=== PATIENT | male | born 1975 | race Two or more races ===

== ENCOUNTER 2018-06-13 04:14 | Emergency (ER) | payer SELFPAY ==
[~2018-06-13] VITALS: Ht 182.9 cm; Wt 76.2 kg
[2018-06-13 04:31] VITALS: BP 125/62
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
--- NOTE | 2018-06-13 04:55 | NUR ---
Patient eloped from facility. ER MD notified.
[2018-06-13] MEDS ORDERED: BACI/NEOM/POLY B OINT PKT 1 UDPKT PACKET TP ONE (05:00)
== END 2018-06-13 04:55 | disposition left against medical advice (07) ==
LOC: ER 04:22
DX: S60.812A Abrasion of left wrist, initial encounter (principal); S60.811A Abrasion of right wrist, initial encounter; S50.812A Abrasion of left forearm, initial encounter; S50.811A Abrasion of right forearm, initial encounter; F32.9 Major depressive disorder, single episode, unspecified; F41.9 Anxiety disorder, unspecified; F20.9 Schizophrenia, unspecified; Z59.0 Homelessness; X58.XXXA Exposure to other specified factors, initial encounter; Y93.89 Activity, other specified; Y92.89 Other specified places as the place of occurrence of the external cause; Y99.8 Other external cause status

== ENCOUNTER 2018-10-31 14:46 | Emergency (ER) | payer SELFPAY ==
[~2018-10-31] VITALS: Ht 188 cm; Wt 73.5 kg
[2018-10-31 15:12] LABS: BASOPHILS # (AUTO) 0.1 /CMM (0.0-0.2); BASOPHILS % (AUTO) 0.6 % (0.0-2.0); HEMATOCRIT 40 % (39-51); HEMOGLOBIN 12.7 g/dL (13.5-17.5); LYMPHOCYTES # (AUTO) 1.7 /CMM (0.8-4.8); LYMPHOCYTES % (AUTO) 16.5 % (20.0-44.0); MEAN CORPUSCULAR HGB CONC 32 g/dl (31.0-36.0); MEAN CORPUSCULAR VOLUME 73 fL (80-96); MONOCYTES # (AUTO) 0.9 /CMM (0.1-1.30); MONOCYTES % (AUTO) 8.6 % (2.0-12.0); NEUTROPHILS # (AUTO) 7.7 /CMM (1.8-8.9); NEUTROPHILS % (AUTO) 74.3 % (43.0-81.0); PLATELET COUNT (AUTO) 431 /CMM (150-450); WHITE BLOOD COUNT (AUTO) 10.4 K/uL (4.3-11.0)
[2018-10-31 15:22] LABS: CALCIUM, SERUM 10.1 mg/dL (8.5-10.1); CARBON DIOXIDE 26 mmol/L (21-32); CHLORIDE 108 mmol/L (98-107); CREATININE 1.2 mg/dL (0.6-1.3); GLUCOSE 123 mg/dL (74-106); POTASSIUM 3.9 mmol/L (3.5-5.1); SODIUM SERUM 149 mmol/L (136-145); UREA NITROGEN, BLOOD 28 mg/dL (7-18)
[2018-10-31 15:27] LABS: ALANINE AMINOTRANSFERASE 55 U/L (12-78); ALBUMIN 4.4 g/dL (3.4-5.0); ALCOHOL, BLOOD < 3 mg/dL (0-0); ALKALINE PHOSPHATASE 92 U/L (46-116); ASPARTATE AMINOTRANSFERASE 39 U/L (15-37); BILIRUBIN,DIRECT 0.2 mg/dL (0.0-0.2); BILIRUBIN,TOTAL 0.5 mg/dL (0.2-1.0); TOTAL PROTEIN, SERUM 9.6 g/dL (6.4-8.2)
[2018-10-31 15:28] LABS: ACETAMINOPHEN 0 ug/ml (10-30); SALICYLATE 1.1 mg/dL (2.8-20.0)
[2018-10-31] MEDS ORDERED: BACI/NEOM/POLY B OINT PKT 1 UDPKT PACKET ONE (15:28)
[2018-10-31] MEDS ORDERED: BACITRACIN ZINC OINT PACKET 1 EA PACKET TP ONE (15:30)
[2018-10-31 15:44] LABS: APPEARANCE,URINE Clear (CLEAR); BILIRUBIN,URINE SMALL (NEGATIVE); BLOOD, URINE Trace-lysed Ery/uL (NEGATIVE); COLOR,URINE Yellow (YELLOW); KETONES,URINE Negative (NEGATIVE); LEUKOCYTE ESTERASE ,URINE Negative (NEGATIVE); NITRITE, URINE Negative (NEGATIVE); PROTEIN,URINE 100 mg/dl (NEGATIVE); UGLUCOSE Negative (NEGATIVE); UROBILINOGEN,URINE 0.2 EU/dL (0.2)
[2018-10-31 15:50] LABS: RBC,URINE 0-2 /HPF (0-2); WBC,URINE 0-2 /HPF (0-3)
[2018-10-31 15:51] LABS: BACTERIA,URINE Few /HPF (None Seen); SQUAMOUS EPITHELIAL CELL,UR Few /HPF (None Seen)
[2018-10-31] MEDS ORDERED: IV NS 0.9% 1,000 ML BAG IV ONE (16:00)
[2018-10-31] MEDS ORDERED: OLANZAPINE 10 MG VIAL IM ONE ×2 (18:20→18:30)
--- NOTE | 2018-10-31 20:00 | NUR ---
PT OK TO DISCHARGE PER DR WOLF. Patient discharged to home in stable condition. Written and verbal after care instructions given. Patient refuses to signs aci and homeless waiver.Patient is awake and alert to self, day, and place. PT ambulatory with a steady gait
[2018-10-31 22:55] VITALS: BP 127/80
== END 2018-10-31 22:55 | disposition home or self-care (01) ==
LOC: ER 14:48
DX: S51.812A Laceration without foreign body of left forearm, initial encounter (principal); S51.811A Laceration without foreign body of right forearm, initial encounter; F15.10 Other stimulant abuse, uncomplicated; F32.9 Major depressive disorder, single episode, unspecified; F41.9 Anxiety disorder, unspecified; F20.9 Schizophrenia, unspecified; Z59.0 Homelessness; X78.0XXA Intentional self-harm by sharp glass, initial encounter; Y93.89 Activity, other specified; Y92.89 Other specified places as the place of occurrence of the external cause; Y99.8 Other external cause status
CPT/HCPCS: 36415; 80048; 80076; 80305; 80307; 80329; 81001; 85025; 96360; 96372; 99283; G0480; J3490; J7030; 81000-TC

== ENCOUNTER 2018-11-05 20:44 | Emergency (ER) | payer OTHER ==
[~2018-11-05] VITALS: Ht 188 cm; Wt 79.8 kg
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
--- NOTE | 2018-11-05 21:00 | NUR ---
Note jessicaone in EDM - 11/06/18 at 0634 by [address]NA BIBRA FROM STRE[address]. PT STATES "FEELING SUICIDAL. HEARING VOICES, CUT MYSELF TO ". NOTED LACS BILATERAL UPPER EXTREMITIES. PT APPEARS DISSHEVELED AND PARANOID, SPEAKING IN RUN-ON SENTENCES ABOUT NOT FEELING SAFE. VITALS SIGNS STABLE. SUICIDE PRECAUTIONS INITIATED. SITTER AT BEDSIDE. WILL CONTINUE TO MONITOR
[2018-11-05] MEDS ORDERED: OLANZAPINE 10 MG VIAL IM ONE ×2 (21:29→22:11)
[2018-11-05] MEDS ORDERED: LORAZEPAM INJ 2 MG/ML VIAL ONE (21:29)
[2018-11-05] MEDS: LORAZEPAM INJ 2 MG/ML VIAL IM ONE (21:35)
[2018-11-05] MEDS: OLANZAPINE 10 MG VIAL IM ONE ×2 (21:36→22:18)
--- NOTE | 2018-11-05 21:36 | NUR ---
URINE COLLECTED AND SENT TO LAB
--- NOTE | 2018-11-05 21:45 | NUR ---
TOW TRUCK OPERATOR AT BEDSIDE FOR BLOOD DRAW
[2018-11-05 21:53] LABS: APPEARANCE,URINE Clear (CLEAR); BILIRUBIN,URINE SMALL (NEGATIVE); BLOOD, URINE Trace-lysed Ery/uL (NEGATIVE); COLOR,URINE Yellow (YELLOW); KETONES,URINE Trace (NEGATIVE); LEUKOCYTE ESTERASE ,URINE Negative (NEGATIVE); NITRITE, URINE Negative (NEGATIVE); PROTEIN,URINE Negative (NEGATIVE); UGLUCOSE Negative (NEGATIVE); UROBILINOGEN,URINE 0.2 EU/dL (0.2)
--- NOTE | 2018-11-05 21:56 | NUR ---
WOUND CARE PROVIDED TO BILATERAL UPPER EXTREMITIES. NON ADHESIVE DRESSINGS APPLIED.
[2018-11-05 21:58] LABS: BASOPHILS % (AUTO) 0.3 % (0.0-2.0); HEMATOCRIT 33 % (39-51); HEMOGLOBIN 10.6 g/dL (13.5-17.5); LYMPHOCYTES # (AUTO) 1.8 /CMM (0.8-4.8); LYMPHOCYTES % (AUTO) 29.1 % (20.0-44.0); MEAN CORPUSCULAR HGB CONC 32 g/dl (31.0-36.0); MEAN CORPUSCULAR VOLUME 74 fL (80-96); MONOCYTES # (AUTO) 0.6 /CMM (0.1-1.30); MONOCYTES % (AUTO) 9.8 % (2.0-12.0); NEUTROPHILS # (AUTO) 3.7 /CMM (1.8-8.9); NEUTROPHILS % (AUTO) 57.8 % (43.0-81.0); PLATELET COUNT (AUTO) 344 /CMM (150-450); RED BLOOD CELL COUNT(AUTO) 4.46 MIL/uL (4.5-6.0); WHITE BLOOD COUNT (AUTO) 6.3 K/uL (4.3-11.0)
[2018-11-05 22:02] LABS: BACTERIA,URINE Few /HPF (None Seen); RBC,URINE 0-2 /HPF (0-2); SQUAMOUS EPITHELIAL CELL,UR Few /HPF (None Seen); WBC,URINE 0-2 /HPF (0-3)
[2018-11-05 22:05] LABS: CALCIUM, SERUM 9.1 mg/dL (8.5-10.1); CREATININE 0.9 mg/dL (0.6-1.3); POTASSIUM 3.9 mmol/L (3.5-5.1)
[2018-11-05] MEDS ORDERED: diphenhydrAMINE HCL 50 MG/ML VIAL ONE (22:10)
--- NOTE | 2018-11-05 22:10 | NUR ---
PT CONSTANTLY YELLING AND GETTING OUT OF BED. SITTER AT BEDSIDE. ER PA AWARE
[2018-11-05 22:11] LABS: ALBUMIN 3.6 g/dL (3.4-5.0); BILIRUBIN,DIRECT 0.1 mg/dL (0.0-0.2); BILIRUBIN,TOTAL 0.4 mg/dL (0.2-1.0); TOTAL PROTEIN, SERUM 7.9 g/dL (6.4-8.2)
[2018-11-05 22:12] LABS: SALICYLATE 0.8 mg/dL (2.8-20.0)
[2018-11-05] MEDS: diphenhydrAMINE HCL 50 MG/ML VIAL IM ONE (22:18)
--- NOTE | 2018-11-05 22:30 | NUR ---
PT CALM AND COOPERATIVE, NO RESTRAINTS NEEDED. ER PA AWARE. SITTER AT BEDSIDE. WILL CONTINUE TO MONITOR
--- NOTE | 2018-11-06 00:55 | NUR ---
Patient is resting comfortably in bed with eyes closed. Easily aroused. VSS.
--- NOTE | 2018-11-06 03:20 | NUR ---
Patient is resting comfortably in bed with eyes closed. Easily aroused. VSS
--- NOTE | 2018-11-06 06:20 | NUR ---
PT AWAKE, AOX4. PT STILL C/O SUICIDAL IDEATION AND REQUESTING FOR [facility]. ER AWARE
--- NOTE | 2018-11-06 06:29 | NUR ---
PROVIDED PT WITH FOOD AND JUICE PER REQUEST. PT IS CALM AND COOPERATIVE. NO ACUTE DISTRESS NOTED AT THIS TIME. SITTER AT BEDSIDE. WILL CONTINUE TO MONITOR
--- NOTE | 2018-11-06 07:13 | NUR ---
PER JAMSHID AT [facility], NO BEDS AVAILABLE AT THIS TIME. FAXED CLINICAL INFORMATION, PENDING ADMISSION WHEN BED BECOMES AVAILABLE
--- NOTE | 2018-11-06 08:00 | NUR ---
BREAKFAST PROVIDED TO PT
--- NOTE | 2018-11-06 09:09 | NUR ---
PER [facility], NO BEDS AVAILABLE AT THIS TIME
--- NOTE | 2018-11-06 09:10 | NUR ---
[facility], NO ANSWER. LEFT MESSAGE. WILL FOLLOW UP
[2018-11-06 10:58] VITALS: BP 104/54
--- NOTE | 2018-11-06 12:40 | NUR ---
Patient given written and verbal discharge instructions. Patient verbalizes understanding of instructions. Patient is ambulatory with steady gait. Refuses offer of fpc placement. Patient given list of available shelters in surrounding area.
== END 2018-12-03 16:07 | disposition home or self-care (01) ==
LOC: ER 20:48
DX: F29 Unspecified psychosis not due to a substance or known physiological condition (principal); D64.9 Anemia, unspecified; F19.10 Other psychoactive substance abuse, uncomplicated; R45.851 Suicidal ideations; F41.9 Anxiety disorder, unspecified; F31.9 Bipolar disorder, unspecified; F20.9 Schizophrenia, unspecified; F15.10 Other stimulant abuse, uncomplicated; F11.10 Opioid abuse, uncomplicated; Z59.0 Homelessness; X78.8XXA Intentional self-harm by other sharp object, initial encounter; Y93.89 Activity, other specified; Y92.89 Other specified places as the place of occurrence of the external cause; Y99.8 Other external cause status
CPT/HCPCS: 36415; 80048; 80076; 80305; 80307; 80329; 81001; 85025; 96372 ×4; 99284; G0480; J1200; J2060; J3490 ×2; 81000-TC

== ENCOUNTER 2018-12-02 08:33 | Emergency (ER) | payer SELFPAY ==
[~2018-12-02] VITALS: Ht 182.9 cm; Wt 73.9 kg
[2018-12-02 08:44] VITALS: BP 128/86
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
--- NOTE | 2018-12-02 09:11 | NUR ---
AT BEDSIDE FOR EVAL.
[2018-12-02] MEDS ORDERED: diphenhydrAMINE HCL 25 MG CAPSULE PO ONE (09:30)
[2018-12-02] MEDS ORDERED: KETOROLAC TROMETHAMINE INJ 60 MG/2 ML VIAL IM ONE (09:30)
[2018-12-02] MEDS ORDERED: KETOROLAC TROMETHAMINE INJ 30 MG/ML VIAL ONE (09:51)
[2018-12-02] MEDS ORDERED: diphenhydrAMINE HCL 25 MG CAPSULE ONE (09:51)
--- NOTE | 2018-12-02 10:18 | NUR ---
CALLED BAILEY MYERS FOR PT EVAL.
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
--- NOTE | 2018-12-02 11:24 | NUR ---
Patient given written and verbal discharge instructions. Patient verbalizes understanding of instructions. Patient is ambulatory with steady gait. Refuses offer of halfway placement. Patient given list of available shelters in surrounding area.
[2018-12-03] MEDS ORDERED: diphenhydrAMINE HCL 25 MG CAPSULE ONE (20:49)
[2018-12-03] MEDS ORDERED: OLANZAPINE 5 MG TABLET ONE (20:49)
== END 2018-12-02 11:30 | disposition home or self-care (01) ==
LOC: ER 08:42
DX: S40.812A Abrasion of left upper arm, initial encounter (principal); S40.811A Abrasion of right upper arm, initial encounter; F41.9 Anxiety disorder, unspecified; F31.9 Bipolar disorder, unspecified; F20.9 Schizophrenia, unspecified; Z59.0 Homelessness; X58.XXXA Exposure to other specified factors, initial encounter; Y93.89 Activity, other specified; Y92.89 Other specified places as the place of occurrence of the external cause; Y99.8 Other external cause status
CPT/HCPCS: 96372; 99283; J1885; Q0163

== ENCOUNTER 2018-12-03 16:52 | Emergency (ER) | payer SELFPAY ==
[~2018-12-03] VITALS: Ht 177.8 cm; Wt 90.7 kg
[2018-12-03 17:27] LABS: BASOPHILS # (AUTO) 0.1 /CMM (0.0-0.2); EOSINOPHILS % (AUTO) 3.8 % (0.0-6.0); HEMATOCRIT 37 % (39-51); HEMOGLOBIN 11.9 g/dL (13.5-17.5); LYMPHOCYTES # (AUTO) 1.7 /CMM (0.8-4.8); MEAN CORPUSCULAR HGB CONC 33 g/dl (31.0-36.0); MEAN CORPUSCULAR VOLUME 74 fL (80-96); MONOCYTES # (AUTO) 0.7 /CMM (0.1-1.30); MONOCYTES % (AUTO) 10.3 % (2.0-12.0); NEUTROPHILS # (AUTO) 3.7 /CMM (1.8-8.9); NEUTROPHILS % (AUTO) 57.9 % (43.0-81.0); PLATELET COUNT (AUTO) 399 /CMM (150-450); RED BLOOD CELL COUNT(AUTO) 4.95 MIL/uL (4.5-6.0); WHITE BLOOD COUNT (AUTO) 6.4 K/uL (4.3-11.0)
[2018-12-03 17:34] LABS: CALCIUM, SERUM 9.4 mg/dL (8.5-10.1); CARBON DIOXIDE 28 mmol/L (21-32); CHLORIDE 103 mmol/L (98-107); GLUCOSE 116 mg/dL (74-106); POTASSIUM 3.7 mmol/L (3.5-5.1); SODIUM SERUM 140 mmol/L (136-145); UREA NITROGEN, BLOOD 16 mg/dL (7-18)
[2018-12-03 17:40] LABS: ACETAMINOPHEN 0 ug/ml (10-30); ALANINE AMINOTRANSFERASE 58 U/L (12-78); ALCOHOL, BLOOD < 3 mg/dL (0-0); ALKALINE PHOSPHATASE 93 U/L (46-116); ASPARTATE AMINOTRANSFERASE 41 U/L (15-37); BILIRUBIN,DIRECT 0.1 mg/dL (0.0-0.2); BILIRUBIN,TOTAL 0.2 mg/dL (0.2-1.0); SALICYLATE 1.3 mg/dL (2.8-20.0); TOTAL PROTEIN, SERUM 8.7 g/dL (6.4-8.2)
[2018-12-03 19:06] LABS: APPEARANCE,URINE Clear (CLEAR); BILIRUBIN,URINE Negative (NEGATIVE); BLOOD, URINE Trace-intact Ery/uL (NEGATIVE); COLOR,URINE Yellow (YELLOW); KETONES,URINE Negative (NEGATIVE); LEUKOCYTE ESTERASE ,URINE Negative (NEGATIVE); NITRITE, URINE Negative (NEGATIVE); PH,URINE 5.5 (5.0-8.0); PROTEIN,URINE Trace mg/dl (NEGATIVE); UGLUCOSE Negative (NEGATIVE); UROBILINOGEN,URINE 0.2 EU/dL (0.2)
[2018-12-03 19:36] LABS: BACTERIA,URINE Few /HPF (None Seen); RBC,URINE 0-2 /HPF (0-2); WBC,URINE 0-3 /HPF (0-3)
[2018-12-03 19:37] LABS: CALCIUM OXALATE CRYSTALS,UR Few /HPF (None Seen); SPERM,URINE Few /HPF (None Seen); SQUAMOUS EPITHELIAL CELL,UR Rare /HPF (None Seen)
--- NOTE | 2018-12-03 19:52 | NUR ---
CALLED [facility], WAS INFORMED THEY WOULD LOOK OVER PT INFO AND CALL BACK.
--- NOTE | 2018-12-03 19:53 | NUR ---
ASSUMED CARE OF PT. PT LYING ON RT SIDE IN BED, HOB ELEVATED W/ RESP EVEN & UNLABORED, NAD NOTED. ALL BELONGINGS REMOVED FR PT AND PLACED IN SECURED LOCKER. SITTER REMAINS AT BEDSIDE IN DIRECT LINE OF SITE OF PATIENT. FLDS OFFERED, BED LOW TO GROUND W/ SIDERAILS UP FOR SAFETY. WILL CONTINUE TO MONITOR.
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
--- NOTE | 2018-12-03 20:17 | NUR ---
[facility], REQUESTING CLINICAL INFO. WILL FAX INFO.
--- NOTE | 2018-12-03 20:21 | NUR ---
URINAL PROVIDED. PT INSTRUCTED TO PROVIDE URINE SAMPLE SOON ABLE.
[2018-12-03] MEDS ORDERED: diphenhydrAMINE HCL 25 MG CAPSULE PO ONE (21:00)
[2018-12-03] MEDS ORDERED: OLANZAPINE 5 MG TABLET PO ONE (21:00)
--- NOTE | 2018-12-03 21:08 | NUR ---
Patient medicated as ordered, refusing to take zyprexa. Patient given written and verbal discharge instructions. Patient verbalizes understanding of instructions. Patient is ambulatory with steady gait, resp even & unlabored w/ nad noted. Refuses offer of long term placement. Patient given list of available shelters in surrounding area. Patient instructed to follow up at [facility] or [facility] for further psychiatric treatment. All belongings returned to patient. Food and juice provided. Patient is appropriately clothed for discharge. Patient refusing any further assistance and had decided to return to streets.
[2018-12-03 21:11] VITALS: BP 135/80
== END 2018-12-03 21:18 | disposition home or self-care (01) ==
LOC: ER 16:53
DX: S50.812A Abrasion of left forearm, initial encounter (principal); S50.811A Abrasion of right forearm, initial encounter; R45.851 Suicidal ideations; D64.9 Anemia, unspecified; F15.10 Other stimulant abuse, uncomplicated; Z59.0 Homelessness; X78.0XXA Intentional self-harm by sharp glass, initial encounter; Y93.89 Activity, other specified; Y92.89 Other specified places as the place of occurrence of the external cause; Y99.8 Other external cause status
CPT/HCPCS: 36415; 80048; 80076; 80305; 80307; 80329; 81001; 85025; 99284; G0480; 81000-TC

== ENCOUNTER → 2019-01-12 | Emergency (ER) | payer SELFPAY ==
[~2019-01-12] VITALS: Ht 182.9 cm; Wt 78.5 kg
[~2019-01-12] MED LIST: ACETAMINOPHEN 325 MG TABLET PO ONE; ACETAMINOPHEN ES 500 MG TABLET ONE; SILVER SULFADIAZINE CREAM 25 GM TUBE ONE; diphenhydrAMINE HCL 25 MG CAPSULE ONE; diphenhydrAMINE HCL 25 MG CAPSULE PO ONE
[2019-01-12 12:51] VITALS: BP 135/81
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
--- NOTE | 2019-01-12 13:31 | NUR ---
CALLED [facility]AILEY TRASHMAN REQUESTED BY PATIENT
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
--- NOTE | 2019-01-12 13:47 | NUR ---
Patient given written and verbal discharge instructions. Patient verbalizes understanding of instructions. Patient is ambulatory with steady gait. Refuses offer of long term placement. Patient given list of available shelters in surrounding area. Clothing and tapcard given.
== END | disposition home or self-care (01) ==
LOC: ER 12:44
DX: T23.102D Burn of first degree of left hand, unspecified site, subsequent encounter (principal); T23.001D Burn of unspecified degree of right hand, unspecified site, subsequent encounter; F32.9 Major depressive disorder, single episode, unspecified; F41.9 Anxiety disorder, unspecified; F20.9 Schizophrenia, unspecified; Z59.0 Homelessness; X08.8XXD Exposure to other specified smoke, fire and flames, subsequent encounter
CPT/HCPCS: 99283; Q0163

== ENCOUNTER 2019-03-22 10:01 | Emergency (ER) | payer SELFPAY ==
[~2019-03-22] VITALS: Ht 177.8 cm; Wt 79.4 kg
[2019-03-22] MEDS ORDERED: diphenhydrAMINE HCL 50 MG/ML VIAL IM ONE ×2 (10:30→18:30)
[2019-03-22] MEDS ORDERED: LORAZEPAM INJ 2 MG/ML VIAL IM ONE ×2 (10:30→18:30)
[2019-03-22] MEDS ORDERED: OLANZAPINE 10 MG VIAL IM ONE (10:30)
[2019-03-22 10:39] LABS: BASOPHILS # (AUTO) 0.1 /CMM (0.0-0.2); BASOPHILS % (AUTO) 0.5 % (0.0-2.0); EOSINOPHILS % (AUTO) 1.1 % (0.0-6.0); HEMATOCRIT 30 % (39-51); HEMOGLOBIN 9.5 g/dL (13.5-17.5); LYMPHOCYTES # (AUTO) 1.6 /CMM (0.8-4.8); LYMPHOCYTES % (AUTO) 15.7 % (20.0-44.0); MEAN CORPUSCULAR HGB CONC 32 g/dl (31.0-36.0); MEAN CORPUSCULAR VOLUME 72 fL (80-96); MONOCYTES # (AUTO) 0.9 /CMM (0.1-1.30); MONOCYTES % (AUTO) 8.3 % (2.0-12.0); NEUTROPHILS # (AUTO) 7.7 /CMM (1.8-8.9); NEUTROPHILS % (AUTO) 74.4 % (43.0-81.0); PLATELET COUNT (AUTO) 410 /CMM (150-450); RED BLOOD CELL COUNT(AUTO) 4.14 MIL/uL (4.5-6.0); WHITE BLOOD COUNT (AUTO) 10.3 K/uL (4.3-11.0)
[2019-03-22 10:45] LABS: CALCIUM, SERUM 8.6 mg/dL (8.5-10.1); CARBON DIOXIDE 26 mmol/L (21-32); CHLORIDE 100 mmol/L (98-107); CREATININE 0.9 mg/dL (0.6-1.3); GLUCOSE 109 mg/dL (74-106); SODIUM SERUM 137 mmol/L (136-145); UREA NITROGEN, BLOOD 8 mg/dL (7-18)
[2019-03-22 10:51] LABS: ALANINE AMINOTRANSFERASE 106 U/L (12-78); ALBUMIN 3.1 g/dL (3.4-5.0); ALCOHOL, BLOOD < 3 mg/dL (0-0); ALKALINE PHOSPHATASE 85 U/L (46-116); ASPARTATE AMINOTRANSFERASE 72 U/L (15-37); BILIRUBIN,DIRECT 0.2 mg/dL (0.0-0.2); BILIRUBIN,TOTAL 0.6 mg/dL (0.2-1.0); TOTAL PROTEIN, SERUM 7.8 g/dL (6.4-8.2)
[2019-03-22 10:54] LABS: ACETAMINOPHEN 0 ug/ml (10-30); SALICYLATE 0.5 mg/dL (2.8-20.0)
[2019-03-22] MEDS ORDERED: diphenhydrAMINE HCL 50 MG/ML VIAL ONE ×2 (10:56→18:13)
--- NOTE | 2019-03-22 11:00 | NUR ---
SAFETY PRECAUTIONS IMPLEMENTED
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
--- NOTE | 2019-03-22 12:16 | NUR ---
Patient is resting comfortably in bed with eyes closed. Easily aroused. VSS
--- NOTE | 2019-03-22 18:00 | NUR ---
PT BEING AGGRESSIVE AT BEDSIDE DESPITE VERBAL INTERVENTIONS.
[2019-03-22] MEDS ORDERED: LORAZEPAM INJ 2 MG/ML VIAL ONE (18:13)
[2019-03-22] MEDS ORDERED: HALOPERIDOL LACTATE INJ 5 MG/ML VIAL ONE (18:13)
[2019-03-22] MEDS ORDERED: HALOPERIDOL LACTATE INJ 5 MG/ML VIAL IM ONE (18:30)
--- NOTE | 2019-03-22 20:59 | NUR ---
Patient is resting comfortably in bed with eyes closed. Easily aroused. VSS
--- NOTE | 2019-03-23 03:02 | NUR ---
PT ASLEEP ON BED, EASILY AROUSABLE, V/S STABLE, WILL CONTINUE TO MONITOR.
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
--- NOTE | 2019-03-23 10:50 | NUR ---
pt is medically cleared. provided w/ clothing, food. and bus pass. discharged in stable condition.
[2019-03-23 10:53] VITALS: BP 120/60
== END 2019-03-23 10:54 | disposition home or self-care (01) ==
LOC: ER 10:12
DX: F19.10 Other psychoactive substance abuse, uncomplicated (principal); F23 Brief psychotic disorder; F32.9 Major depressive disorder, single episode, unspecified; F41.9 Anxiety disorder, unspecified; Z59.0 Homelessness
CPT/HCPCS: 36415; 80048; 80076; 80307; 80329; 85025; 96372 ×2; 99283; A6403 ×2; G0480; J1200 ×2; J1630; J2060

== ENCOUNTER 2019-04-21 14:14 | Emergency (ER) | payer SELFPAY ==
[~2019-04-21] VITALS: Ht 170.2 cm; Wt 61.2 kg
[2019-04-21 14:45] VITALS: BP 134/74
--- NOTE | 2019-04-21 14:51 | NUR ---
Patient given written and verbal discharge instructions. Patient verbalizes understanding of instructions. Patient is ambulatory with steady gait. Refuses offer of nursing home placement. Patient given list of available shelters in surrounding area. offered tap card and refused.
== END 2019-04-21 14:51 | disposition home or self-care (01) ==
LOC: ER 14:16
DX: R56.9 Unspecified convulsions (principal); F32.9 Major depressive disorder, single episode, unspecified; F41.9 Anxiety disorder, unspecified; F20.9 Schizophrenia, unspecified; Z59.0 Homelessness

== ENCOUNTER 2019-06-02 23:48 | Emergency (ER) | payer SELFPAY ==
[~2019-06-02] VITALS: Ht 177.8 cm; Wt 79.4 kg
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
--- NOTE | 2019-06-02 23:58 | NUR ---
SECURITY CALLED FOR WANDING.
--- NOTE | 2019-06-03 00:02 | NUR ---
ASSEMBLER CHASSIS AT BEDSIDE
[2019-06-03 00:23] LABS: APPEARANCE,URINE Clear (CLEAR); BILIRUBIN,URINE Negative (NEGATIVE); BLOOD, URINE Negative Ery/uL (NEGATIVE); COLOR,URINE Yellow (YELLOW); KETONES,URINE Negative (NEGATIVE); LEUKOCYTE ESTERASE ,URINE Negative (NEGATIVE); NITRITE, URINE Negative (NEGATIVE); PH,URINE 5.5 (5.0-8.0); PROTEIN,URINE Negative (NEGATIVE); UGLUCOSE Negative (NEGATIVE); UROBILINOGEN,URINE 0.2 EU/dL (0.2)
[2019-06-03 00:33] LABS: BASOPHILS # (AUTO) 0.1 /CMM (0.0-0.2); BASOPHILS % (AUTO) 0.8 % (0.0-2.0); EOSINOPHILS % (AUTO) 3.1 % (0.0-6.0); HEMATOCRIT 34 % (39-51); HEMOGLOBIN 10.9 g/dL (13.5-17.5); LYMPHOCYTES # (AUTO) 2.1 /CMM (0.8-4.8); LYMPHOCYTES % (AUTO) 29.2 % (20.0-44.0); MEAN CORPUSCULAR HGB CONC 32 g/dl (31.0-36.0); MEAN CORPUSCULAR VOLUME 73 fL (80-96); MONOCYTES # (AUTO) 0.6 /CMM (0.1-1.30); MONOCYTES % (AUTO) 8.8 % (2.0-12.0); NEUTROPHILS # (AUTO) 4.1 /CMM (1.8-8.9); NEUTROPHILS % (AUTO) 58.1 % (43.0-81.0); PLATELET COUNT (AUTO) 436 /CMM (150-450); RED BLOOD CELL COUNT(AUTO) 4.72 MIL/uL (4.5-6.0); WHITE BLOOD COUNT (AUTO) 7.1 K/uL (4.3-11.0)
[2019-06-03 00:40] LABS: CALCIUM, SERUM 8.9 mg/dL (8.5-10.1); CARBON DIOXIDE 28 mmol/L (21-32); CHLORIDE 101 mmol/L (98-107); CREATININE 0.7 mg/dL (0.6-1.3); GLUCOSE 98 mg/dL (74-106); POTASSIUM 3.6 mmol/L (3.5-5.1); SODIUM SERUM 136 mmol/L (136-145); UREA NITROGEN, BLOOD 13 mg/dL (7-18)
--- NOTE | 2019-06-03 00:51 | NUR ---
Patient is resting comfortably in bed. Easily aroused. VSS.
[2019-06-03 00:56] LABS: ALANINE AMINOTRANSFERASE 91 U/L (12-78); ALBUMIN 3.9 g/dL (3.4-5.0); ALKALINE PHOSPHATASE 94 U/L (46-116); ASPARTATE AMINOTRANSFERASE 65 U/L (15-37); BILIRUBIN,DIRECT 0.1 mg/dL (0.0-0.2); BILIRUBIN,TOTAL 0.3 mg/dL (0.2-1.0); TOTAL PROTEIN, SERUM 8.8 g/dL (6.4-8.2)
--- NOTE | 2019-06-03 01:04 | NUR ---
NOTED ABRASIONS BILATERAL UPPER EXTREMITIES. WOUND CARE AND DRESSING APPLIED
[2019-06-03] MEDS ORDERED: diphenhydrAMINE HCL 50 MG CAPSULE ONE (01:32)
[2019-06-03] MEDS ORDERED: LORAZEPAM 1 MG TABLET ONE (01:32)
[2019-06-03 01:34] LABS: ACETAMINOPHEN 0 ug/ml (10-30); ALCOHOL, BLOOD < 3 mg/dL (0-0)
--- NOTE | 2019-06-03 01:37 | NUR ---
PT ON CONSTANT OBSERVATION AND RESTING COMFORTABLY IN BED. VSS. NO ACUTE DISTRESS NOTED. 1:1 SITTER AT BEDSIDE FOR SAFETY
--- NOTE | 2019-06-03 01:57 | NUR ---
PT AMBULATED TO THE RESTROOM. VSS.
[2019-06-03] MEDS ORDERED: LORAZEPAM 1 MG TABLET PO ONE (02:00)
[2019-06-03] MEDS ORDERED: diphenhydrAMINE HCL 50 MG CAPSULE PO ONE (02:00)
--- NOTE | 2019-06-03 03:46 | NUR ---
PT ON CONSTANT OBSERVATION AND RESTING COMFORTABLY IN BED. VSS. NO ACUTE DISTRESS NOTED. 1:1 SITTER AT BEDSIDE FOR SAFETY
--- NOTE | 2019-06-03 04:20 | NUR ---
CLINICAL PACKET FAXED TO [facility]
--- NOTE | 2019-06-03 05:54 | NUR ---
CALL FROM [facility]. PT ON DO NOT ADMIT LIST.
--- NOTE | 2019-06-03 06:57 | NUR ---
PT ASKED FOR A URINAL. VSS. PROVIDED WITH URINAL AND BLANKETS.
--- NOTE | 2019-06-03 08:22 | NUR ---
PROVIDED W BREAKFAST TRAY, TOLERATED PO WELL
--- NOTE | 2019-06-03 08:53 | NUR ---
SW AND ADMIN AT BEDSIDE
[2019-06-03] MEDS ORDERED: ARIPIPRAZOLE 5 MG TABLET PO ONE (09:00)
[2019-06-03 10:48] VITALS: BP 114/62
--- NOTE | 2019-06-03 11:13 | NUR ---
SOCIAL SERVICE ASSESSMENT: SW and Supervisor Joiners met with pt at bedside to evaluate pts mental status. Pt appears agitated and was yelling for the nurses attention. Pt was laying in bed and appeared disheveled and unkempt and it appeared that pt was not wearing clothing. Pt has mutilation almodovar on both his wrists that appeared fresh. Pt confirmed he is having auditory hallucinations and suicidal ideation without a plan. Pt is hyperverbal with mumbled speech and was stating that he wanted food because he didn't get full with the cereal and banana he was given. Pt then was stating that he was going to jan to the hospital for kicking him out. director institution informed him that he was on the "do not admit" list at [facility] and explored options with pt, she recommended pt go to [facility] and pt denied and stated that he wanted to be discharged to [facility] in [facility] Address: [address] [address] . Pt stated that he needed a TAP card and clothing as his was all ripped. Pt also requested to be given food at time of discharge. Pt was given homeless resources and a copy was placed in pts chart.
== END 2019-06-03 10:52 | disposition home or self-care (01) ==
LOC: ER 23:48
DX: R45.851 Suicidal ideations (principal); F41.9 Anxiety disorder, unspecified; F31.9 Bipolar disorder, unspecified; F20.9 Schizophrenia, unspecified; Z88.8 Allergy status to other drugs, medicaments and biological substances; Z59.0 Homelessness
CPT/HCPCS: 36415; 80048; 80076; 80305; 80307; 80329; 81001; 85025; 99285; A6403; G0480; Q0163; 81000-TC